=== PATIENT | male | born 1985 | race Caucasian/White ===

== ENCOUNTER 2016-12-20 12:21 | Emergency (ER) | payer OTHER ==
[2016-12-20 12:50] VITALS: BP 135/80; PULSE 75; RESP 14; TEMP 98.8; O2SAT 96
--- NOTE | 2016-12-20 13:14 | UCPHY ---
H & P Patient Type: New Chief Complaint Nursing Narrative: redness,swelling,tenderness,drainage left lower back from ingrown hair. Time Seen by Provider: 12/20/16 12:54 HPI/ROS: Chief complaint: tender area on the right hip HPI: Patient had when he thought was an ingrown hair on his right hip, 2 weeks ago he tried to pop it. He has been having increasing redness and irritation at the site. Has not had any discharge. Has been getting increasingly swollen and red. No fevers or chills. No prior history of the same. Otherwise without complaint ROS: 10 point Review of Systems is negative except as noted in the HPI. Physical exam: General: Awake, alert, no acute distress Back: He has a 3 cm abscess along the belt line above his right gluteal region. There is no surrounding erythema. It is fluctuant but is not pointing. Is minimally tender. Skin: Negative except per Back exam. - Personal History Current Tetanus Diphtheria and Acellular Pertussis (TDAP): Yes Tetanus Vaccine Date: 2012 - Medical/Surgical History Hx Asthma: No Hx Chronic Respiratory Disease: No Hx Diabetes: No Hx Cardiac Disease: No Hx Renal Disease: No Hx Cirrhosis: No Hx Alcoholism: No Hx HIV/AIDS: No Hx Splenectomy or Spleen Trauma: No Other PMH: denies - Family History Significant Family History: No pertinent family hx - Social History Smoking Status: Current every day smoker Constitutional: Initial Vital Signs Temperature (C) 37.1 C 12/20/16 12:45 Heart Rate 75 12/20/16 12:45 Respiratory Rate 14 12/20/16 12:45 Blood Pressure 135/80 H 12/20/16 12:45 O2 Sat (%) 96 12/20/16 12:45 O2 Delivery Mode Room Air Medical Decision Making Procedures: Procedure: Abscess drainage. The patient's abscess was located on the right back. I obtained verbal consent from the patient to drain the abscess who was informed about the possibility of bleeding and pain. The abscess was incised with an 11 blade scalpel and a moderate amount of purulent drainage was expressed. I irrigated the wound and placed some packing. The patient tolerated the procedure well. The procedure was performed by myself. Departure - Departure Disposition: Home, Routine, Self-Care Clinical Impression: Abscess Condition: Good Instructions: Abscess (ED) Additional Instructions: Leave the dressing and packing in place for the next 2 days. You can remove the dressing and the packing from the wound on Friday. You can also follow up with primary care doctor to have the packing removed at that time. Return to Urgent Care for increasing redness, increasing pain, fevers, chills, or any other concerns. Referrals: Chris Conn [Doctor of Osteopathy] - As per Instructions - PQRS PQRS Measurement: NA
== END 2016-12-20 13:28 | disposition home or self-care (01) ==
LOC: CED 12:21
PROC: 0H96XZZ Drainage of Back Skin, External Approach (ICD-10-PCS; principal; 2016-12-20)
DX: L02.212 Cutaneous abscess of back [any part, except buttock and flank] (principal)
CPT/HCPCS: 10061-PO; G0463-PO